=== PATIENT | female | born 1930 | race Caucasian/White ===

== ENCOUNTER 2016-08-17 22:16 | Emergency (ER) | payer MEDICARE, OTHER ==
--- NOTE | 2016-08-18 00:05 | ER Document Report ---
ED General - General Chief Complaint: Low Blood Sugar Stated Complaint: BLOOD SUGAR ISSUES Time Seen by Provider: 08/17/16 22:59 Notes: Patient is an 86-year-old female who presents with complaints of confusion today. Patient says that she had difficulty getting her words out and felt like her mind was confused. Paramedics arrived and her blood sugar was 53. They gave her oral glucose. Her blood sugar went to 190. She apparently was still somewhat confused after her blood sugar was 190. Patient now says she feels improved. Patient initially refused treatment. I then tried to call her daughter. I was told by the person answered the phone that her daughter was already here. Patient's daughter has since come to the room and now the patient agrees to be evaluated and treated. The daughter says the patient has a history of recurrent TIAs. She is on Plavix and Aspirin for this. She does not have lingering stroke symptoms. He has not had recent fevers or infections. She has had multiple ultrasounds on her carotids. She gets them yearly. She recently had one this year and was told that she does not require any current surgery on her carotid arteries. 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 She has had one toe removed. She does live by herself. She does walk with a walker. TRAVEL OUTSIDE OF THE [place] IN LAST 30 DAYS: No - Related Data Allergies/Adverse Reactions: propoxyphene HCl [From Darvon] Allergy (Verified 08/10/13 10:10) propoxyphene [Propoxyphene] Adverse Reaction (Intermediate, Verified 08/10/13 10 :10) nausea and vomiting codeine [Codeine] Adverse Reaction (Mild, Verified 08/10/13 10:10) N&V Past Medical History - Social History Smoking Status: Never Smoker Chew tobacco use (# tins/day): No Frequency of alcohol use: None Drug Abuse: None Family History: Reviewed & Not Pertinent - Past Medical History Cardiac Medical History: Reports: Hx Coronary Artery Disease, Hx Hypercholesterolemia, Hx Hypertension, Hx Heart Murmur Denies: Hx Heart Attack Pulmonary Medical History: Denies: Hx Asthma, Hx Bronchitis, Hx COPD, Hx Pneumonia, Hx Tuberculosis Neurological Medical History: Denies: Hx Cerebrovascular Accident, Hx Seizures Endocrine Medical History: Reports: Hx Diabetes Mellitus Type 1, Hx Diabetes Mellitus Type 2 GI Medical History: Reports: Hx Ulcer - R-foot stent placed Musculoskeltal Medical History: Reports Hx Arthritis - osteoporosis Infectious Medical History: Past Surgical History: Reports: Hx Cardiac Surgery - cabg, Hx Coronary Artery Bypass Graft - 1985, Hx Orthopedic Surgery - back surgeries x 2. Denies: Hx Appendectomy, Hx Bowel Surgery, Hx Section, Hx Cholecystectomy, Hx Gastric Bypass Surgery, Hx Herniorrhaphy, Hx Hysterectomy, Hx Mastectomy, Hx Pacemaker, Hx Tonsillectomy, Hx Tubal Ligation - Immunizations Hx Diphtheria, Pertussis, Tetanus Vaccination: Yes Review of Systems - Review of Systems Notes: My Normal Review Basic REVIEW OF SYSTEMS: CONSTITUTIONAL : Denies fever, chills, or sweats. Denies recent illness. EENT: Denies eye, ear, throat, or mouth pain or symptoms. Denies nasal or sinus congestion. CARDIOVASCULAR: Denies chest pain. RESPIRATORY: Denies cough, cold, or chest congestion. Denies shortness of breath, difficulty breathing, or wheezing. GASTROINTESTINAL: Denies abdominal pain. Denies nausea, vomiting, or diarrhea. Denies constipation. Last BM: GENITOURINARY: Denies difficulty urinating, painful urination, burning, frequency, or blood in urine. MUSCULOSKELETAL: Denies neck or back pain or joint pain or swelling. SKIN: Denies rash or skin lesions. NEUROLOGICAL: period of altered mental status. Denies headache. Denies weakness or paralysis or loss of use of either side. Denies problems with gait or speech. Denies sensory or motor loss.As ALL OTHER SYSTEMS REVIEWED AND NEGATIVE. Physical Exam - Vital signs Vitals: Temp Pulse Resp BP Pulse Ox 98.4 F 63 16 151/52 H 100 08/17/16 22:32 08/17/16 22:32 08/17/16 22:32 08/17/16 22:32 08/17/16 22:32 - Notes Notes: General Appearance: Well nourished, alert, cooperative, no acute distress, no obvious discomfort. Vitals: reviewed, See vital signs table. Head: no swelling or tenderness to the head Eyes: PERRL, EOMI, Conjuctiva clear Mouth: No decreasd moisture Throat: No tonsillar inflammation, No airway obstruction, No lymphadenopathy Lungs: No wheezing, No rales, No rhonci, No accessory muscle use, good air exchange bilaterally. Heart: Normal rate, Regular rythm, No murmur, no rub Abdomen: Normal BS, soft, No rigidity, No abdominal tenderness, No guarding, no rebound, no abdominal masses, no organomegaly Extremities: strength 5/5 in all extremities, good pulses in all extremities, no swelling or tenderness in the extremities, no edema. Skin: warm, dry, appropriate color, no rash Neuro: speech clear, oriented x 3, normal affect, responds appropriately to questions. Cranial nerves II through XII are intact. Distal sensation intact. Patient has good strength and coordination in all extremities with exception of some foot drop in the right foot which is chronic due to a previous back surgery. Patient is able to stand out of bed using me as if I was her walker. She does this without any difficulties. Once up she has good balance again using me as a walker. Course - Vital Signs Vital signs: Temp Pulse Resp BP Pulse Ox 98.4 F 74 17 162/76 H 99 08/17/16 22:32 08/18/16 01:28 08/18/16 01:28 08/18/16 01:28 08/18/16 01:28 - Laboratory Laboratory results interpreted by me: 08/17/16 08/17/16 08/18/16 22:30 23:46 00:00 POC Glucose 136 H 169 H Urine Blood MODERATE H Ur Leukocyte Esterase SMALL H - EKG Interpretation by Me Additional EKG results interpreted by me: 08/18/16 00:28 EKG is reviewed and interpreted by me. EKG shows normal sinus rhythm with rate of [address] segment elevation. She has mild ST segment elevation in lateral precordial leads which is unchanged in comparison to her previous EKG from March 04, 2015. CT interval, QRS duration, QTc intervals are within normal range. - Transfer of Care Notes: 08/18/16 06:18 It is unclear if the patient's confusion was related to hypoglycemia or possible TIA. I suspect TIA more mainly because her blood sugar was only down to 53 and her symptoms did not immediately resolve after receiving the oral glucose. The daughter's history. Patient currently has no neurologic deficits. She is awake and alert and appropriate. She looks well. She has a history of previous TIAs. She is already on aspirin and Plavix. I donot see any benefit from admission at this time being that she is currently asymptomatic. We will have her follow-up with her doctor for close reevaluation. I encouraged him to return to ER immediately if she has recurrence of her symptoms or feels unwell. Patient and daughter agree with plan and she will be discharged home. Dictation of this chart was performed using voice recognition software; therefore, there may be some unintended grammatical errors. 08/18/16 06:20 Discharge - Discharge Clinical Impression: Altered awareness, transient UTI (urinary tract infection) Qualifiers: Urinary tract infection type: site unspecified Hematuria presence: without hematuria Qualified Code(s): N39.0 - Urinary tract infection, site not specified Condition: Good Disposition: HOME, SELF-CARE Additional Instructions: Please return to the ER immediately if you have recurrence of confusion, any new weakness, fevers, or if you feel unwell in anyway. Please follow up with Dr. Viera on Friday for close reevaluation. Continue to take your medications as prescribed. Prescriptions: Cephalexin Monohydrate [Keflex 500 mg Capsule] 500 mg PO BID #10 capsule Referrals: PILO SMART MD [Primary Care Provider] - Follow up as needed
[2016-08-18 00:21] LABS: APPEARANCE,URINE CLEAR; BILIRUBIN,URINE NEGATIVE (NEGATIVE); GLUCOSE, URINE NEGATIVE (NEGATIVE); KETONES,URINE NEGATIVE (NEGATIVE); LEUKOCYTE ESTERASE,URINE SMALL (NEGATIVE); NITRITE,URINE NEGATIVE (NEGATIVE); PROTEIN,URINE NEGATIVE (NEGATIVE); URINE SPECIFIC GRAVITY 1.006; UROBILINOGEN,URINE NEGATIVE mg/dL (<2.0)
[2016-08-18] MEDS ORDERED: CEPHALEXIN 500 MG CAPSULE PO ONE (01:02)
[2016-08-18 01:30] VITALS: BP 162/76
--- NOTE | 2016-08-18 17:06 | EKG REPORT ---
SEVERITY:- ABNORMAL ECG - SINUS RHYTHM NONSPECIFIC INTRAVENTRICULAR CONDUCTION DELAY MINIMAL ST DEPRESSION, LATERAL LEADS : Confirmed by: Brittny Wilson MD 18-Aug-2016 17:05:52
== END 2016-08-18 01:28 | disposition home or self-care (01) ==
LOC: ER 22:16
DX: N39.0 Urinary tract infection, site not specified (principal); R40.4 Transient alteration of awareness; E11.649 Type 2 diabetes mellitus with hypoglycemia without coma; I25.10 Atherosclerotic heart disease of native coronary artery without angina pectoris; I10 Essential (primary) hypertension; Z86.73 Personal history of transient ischemic attack (TIA), and cerebral infarction without residual deficits; Z79.82 Long term (current) use of aspirin; Z79.02 Long term (current) use of antithrombotics/antiplatelets; Z88.5 Allergy status to narcotic agent; Z95.1 Presence of aortocoronary bypass graft
CPT/HCPCS: 93005; 99284; 82962; 81001; 70450; 93010; A9270

== ENCOUNTER 2017-12-21 22:36 | Emergency (ER) | payer MEDICARE, OTHER ==
--- NOTE | 2017-12-21 23:56 | ER Document Report ---
ED General - General Chief Complaint: Low Blood Sugar Stated Complaint: BLOOD SUGAR PROBLEM Time Seen by Provider: 12/21/17 23:17 Notes: Patient is an 87-year-old female who presents with complaint of suddenly feeling very cold and diaphoretic and felt as if she was going to pass out. She says felt as if her sugar was dropping significantly and therefore she started eating a lot of food incontinence. Despite eating a lot of food her blood sugar is only up to 55 by the time and wants that there. The therefore gave her 15 g of insulin glucose 1 mg glucagon. Patient says she now feels much improved. Upon arrival she was hypothermic. She denies any recent fevers or infections other than being placed on antibiotic for a postoperative infection on her left leg. Patient in August had a bypass surgery on her right leg. A month later she developed infection and therefore had what sounds to be some debridement with wound VAC. She was recently doing very well until this week when she developed a small abscess over the incisional site. She went to urgent care and was placed on Bactrim and another antibiotic. She says the small abscess has been draining. This been no spreading erythema. No fevers. I did talk to the patient's daughter in the phone. She was able to review the patient's medications with me. The patient is on Lantus 35 mg in the morning. She is also on Humalog sliding scale. She is on Synthroid, calcium, aspirin, multivitamin, Plavix, metoprolol, losartan, Januvia, and one other medication that the daughter cannot remember the name of. Patient's surgeon was Dr. Marc. TRAVEL OUTSIDE OF THE [place] IN LAST 30 DAYS: No - Related Data Allergies/Adverse Reactions: propoxyphene HCl [From Darvon] Allergy (Verified 08/10/13 10:10) propoxyphene [Propoxyphene] Adverse Reaction (Intermediate, Verified 08/10/13 10 :10) nausea and vomiting codeine [Codeine] Adverse Reaction (Mild, Verified 08/10/13 10:10) N&V Past Medical History - Social History Smoking Status: Never Smoker Frequency of alcohol use: None Family History: Reviewed & Not Pertinent Patient has suicidal ideation: No Patient has homicidal ideation: No - Past Medical History Cardiac Medical History: Reports: Hx Coronary Artery Disease, Hx Hypercholesterolemia, Hx Hypertension, Hx Heart Murmur Denies: Hx Heart Attack Pulmonary Medical History: Denies: Hx Asthma, Hx Bronchitis, Hx COPD, Hx Pneumonia, Hx Tuberculosis Neurological Medical History: Denies: Hx Cerebrovascular Accident, Hx Seizures Endocrine Medical History: Reports: Hx Diabetes Mellitus Type 1, Hx Diabetes Mellitus Type 2 Renal/ Medical History: Denies: Hx Peritoneal Dialysis GI Medical History: Reports: Hx Ulcer - R-foot stent placed Musculoskeletal Medical History: Reports Hx Arthritis - osteoporosis Infectious Medical History: Past Surgical History: Reports: Hx Cardiac Surgery - cabg, Hx Coronary Artery Bypass Graft - 1984, Hx Orthopedic Surgery - back surgeries x 2. Denies: Hx Appendectomy, Hx Bowel Surgery, Hx Section, Hx Cholecystectomy, Hx Gastric Bypass Surgery, Hx Herniorrhaphy, Hx Hysterectomy, Hx Mastectomy, Hx Pacemaker, Hx Tonsillectomy, Hx Tubal Ligation - Immunizations Hx Diphtheria, Pertussis, Tetanus Vaccination: Yes Review of Systems - Review of Systems Notes: My Normal Review Basic REVIEW OF SYSTEMS: CONSTITUTIONAL : Denies fever, chills, or sweats. Denies recent illness. RESPIRATORY: Denies cough, cold, or chest congestion. Denies shortness of breath, difficulty breathing, or wheezing. GASTROINTESTINAL: Denies abdominal pain. Denies nausea, vomiting, or diarrhea. MUSCULOSKELETAL: Small area of postop infection on right thigh. SKIN: Denies rash or skin lesions. NEUROLOGICAL: Patient had near syncopal episode where she does feel sweaty and unwell very weak. This resolved after eating and receiving sugar. ALL OTHER SYSTEMS REVIEWED AND NEGATIVE. Physical Exam - Vital signs Vitals: Temp Resp 94.3 F L 14 12/21/17 22:42 12/21/17 22:42 - Notes Notes: General Appearance: Well nourished, alert, cooperative, no acute distress, no obvious discomfort. Well appearing. Vitals: reviewed, See vital signs table. Head: no swelling or tenderness to the head Eyes: PERRL, EOMI, Conjuctiva clear Mouth: No decreasd moisture Lungs: No wheezing, No rales, No rhonci, No accessory muscle use, good air exchange bilaterally. Heart: Normal rate, Regular rythm, No murmur, no rub Abdomen: Normal BS, soft, No rigidity, No abdominal tenderness, No guarding, no rebound, no abdominal masses Extremities: strength 5/5 in all extremities, good pulses in all extremities, patient is a postsurgical scar on her right thigh. Just above her right knee along the scar she does have a small area of induration that is approximately 1- 2 cm in diameter. There is a small hole that we will release a small amount of purulent drainage when this area is pushed. I did swab this drainage and send it for culture. Surrounding erythema or redness. Skin: warm, dry, appropriate color, no rash Neuro: speech clear, oriented x 3, normal affect, responds appropriately to questions. Cranial nerves II through XII are intact. Distal sensation intact. Patient moves all extremities without difficulty. Course - Re-evaluation Re-evalutation: 12/22/17 06:09 Patient's blood sugar is not dropped again. Is remained normal or slightly elevated. I will have her stop taking Januvia. I have her continue taking antibiotics. She does have the very small area of infection in her leg. Antibiotics to be working appropriately. There is no erythema redness so she with. There is just a very small 1-2 cm area of fluctuation that has a small amount of purulent drainage. I encourage her to call her surgeon this morning to make follow-up appointment for reevaluation. I encouraged her to return to the ER if she has any spreading redness or swelling, recurrent drop in her blood sugar, or she feels unwell. Patient agrees with plan will be discharged home. Dictation of this chart was performed using voice recognition software; therefore, there may be some unintended grammatical errors. - Vital Signs Vital signs: Temp Pulse Resp BP Pulse Ox 98.5 F 16 102/41 L 99 12/22/17 04:31 12/22/17 04:00 12/22/17 04:31 12/22/17 04:31 - Laboratory Result Diagrams: 12/22/17 00:27 12/22/17 00:27 Laboratory results interpreted by me: 12/22/17 12/22/17 12/22/17 00:11 00:27 00:27 WBC 12.8 H RBC 3.37 L Hgb 10.2 L Hct 29.5 L RDW 14.4 H Seg Neutrophils % 86.0 H Lymphocytes % 8.6 L Absolute Neutrophils 11.0 H Sodium 133.0 L Carbon Dioxide 21 L BUN 31 H Est GFR ( Amer) 51 L Est GFR (Non-Af Amer) 42 L Glucose 222 H POC Glucose 258 H Urine Glucose (UA) Urine Ascorbic Acid 12/22/17 12/22/17 01:27 02:38 WBC RBC Hgb Hct RDW Seg Neutrophils % Lymphocytes % Absolute Neutrophils Sodium Carbon Dioxide BUN Est GFR ( Amer) Est GFR (Non-Af Amer) Glucose POC Glucose 247 H Urine Glucose (UA) 50 H Urine Ascorbic Acid 40 H - EKG Interpretation by Me Additional EKG results interpreted by me: 12/21/17 23:57 EKG is reviewed and interpreted by me. EKG shows sinus rhythm with rate of [address] segment elevation except for mild elevation in aVR which is unchanged comparison to her old EKG from August 18, 2016. She does have some mild ST segment depressions which again are unchanged comparison to her old EKG. She has occasional PVCs. AL interval is within normal range. QRS duration is prolonged. QTc interval is within normal range. Discharge - Discharge Clinical Impression: Hypoglycemia Post op infection Qualifiers: Encounter type: initial encounter Qualified Code(s): T81.4XXA - Infection following a procedure, initial encounter Condition: Good Disposition: HOME, SELF-CARE Additional Instructions: Please do not take your Januvia until revaluated by your doctor. Please keep a close eye on your blood sugar over the next 24 hours. Please continue to take your antibiotic. Call Dr. Marc's office this morning to make a close follow up appointment this week for reevaluation of your leg. Referrals: PILO SMART MD [NO LOCAL MD] - 12/23/17
[2017-12-22 00:38] LABS: ABSOLUTE EOSINOPHILS # (AUTO) 0.1 10^3/uL (0.0-0.6); ABSOLUTE LYMPHOCYTES (AUTO) 1.1 10^3/uL (0.5-4.7); ABSOLUTE MONOCYTES (AUTO) 0.6 10^3/uL (0.1-1.4); BASOPHILS % (AUTO) 0.4 % (0-2); EOSINOPHILS % (AUTO) 0.7 % (0-6); HEMATOCRIT 29.5 % (36.0-47.0); HEMOGLOBIN 10.2 g/dL (12.0-15.5); LYMPHOCYTES % (AUTO) 8.6 % (13-45); MEAN CORPUSCULAR HEMOGLOBIN 30.4 pg (27.0-33.4); MEAN CORPUSCULAR HGB CONC 34.7 g/dL (32.0-36.0); MEAN CORPUSCULAR VOLUME 88 fl (80-97); MONOCYTES % (AUTO) 4.3 % (3-13); PLATELET COUNT 215 10^3/uL (150-450); RED BLOOD COUNT 3.37 10^6/uL (3.72-5.28); RED CELL DISTRIBUTION WIDTH 14.4 % (11.5-14.0); TOTAL CELLS COUNTED % (AUTO) 100 %; WHITE BLOOD COUNT 12.8 10^3/uL (4.0-10.5)
[2017-12-22 00:52] LABS: ALANINE AMINOTRANSFERASE 24 U/L (9-52); ALBUMIN 3.7 g/dL (3.5-5.0); ALKALINE PHOSPHATASE 51 U/L (38-126); ANION GAP 14 (5-19); ASPARTATE AMINO TRANSFERASE 29 U/L (14-36); BILIRUBIN,DIRECT 0.3 mg/dL (0.0-0.4); BILIRUBIN,TOTAL 0.5 mg/dL (0.2-1.3); BLOOD UREA NITROGEN 31 mg/dL (7-20); CARBON DIOXIDE 21 mmol/L (22-30); CHLORIDE 98 mmol/L (98-107); GLUCOSE 222 mg/dL (75-110); POTASSIUM 4.1 mmol/L (3.6-5.0); TOTAL PROTEIN 6.8 g/dL (6.3-8.2)
[2017-12-22] MEDS ORDERED: NORMAL SALINE 500 ML IV ONE (02:10)
[2017-12-22 03:04] LABS: APPEARANCE,URINE CLEAR; BILIRUBIN,URINE NEGATIVE (NEGATIVE); GLUCOSE, URINE 50 mg/dL (NEGATIVE); KETONES,URINE NEGATIVE (NEGATIVE); LEUKOCYTE ESTERASE,URINE NEGATIVE (NEGATIVE); NITRITE,URINE NEGATIVE (NEGATIVE); PROTEIN,URINE NEGATIVE (NEGATIVE); URINE SPECIFIC GRAVITY 1.012; UROBILINOGEN,URINE NEGATIVE mg/dL (<2.0)
[2017-12-22 03:06] LABS: COLOR,URINE DARK YELLOW
[2017-12-22 05:45] VITALS: BP 102/41
== END 2017-12-22 04:30 | disposition home or self-care (01) ==
LOC: ER 22:36
DX: E11.649 Type 2 diabetes mellitus with hypoglycemia without coma (principal); Z79.4 Long term (current) use of insulin; Z79.84 Long term (current) use of oral hypoglycemic drugs; T81.4XXA Infection following a procedure, initial encounter; L02.416 Cutaneous abscess of left lower limb; Y83.2 Surgical operation with anastomosis, bypass or graft as the cause of abnormal reaction of the patient, or of later complication, without mention of misadventure at the time of the procedure; T68.XXXA Hypothermia, initial encounter; R61 Generalized hyperhidrosis; I49.3 Ventricular premature depolarization; R55 Syncope and collapse; I25.10 Atherosclerotic heart disease of native coronary artery without angina pectoris; I10 Essential (primary) hypertension; Z79.899 Other long term (current) drug therapy; Z79.82 Long term (current) use of aspirin; Z79.02 Long term (current) use of antithrombotics/antiplatelets; Z88.5 Allergy status to narcotic agent; Z95.1 Presence of aortocoronary bypass graft
CPT/HCPCS: 36415; 80053; 81001; 82962; 84484; 85025; 87070; 87077; 87186; 87205; 96360; 99285